=== PATIENT | male | born 1955 | race Two or more races ===

== ENCOUNTER 2025-04-03 12:05 | Inpatient (IN) | payer BC ==
[~2025-04-03] VITALS: Ht 188 cm; Wt 120.7 kg
[2025-04-03] VITALS (8 sets, daily range): BP systolic 109–133; BP diastolic 71–88; TEMP 97.3–98.6; O2SAT 92–96
[2025-04-03] MEDS ORDERED: APIX2.5T PO (12:41)
[2025-04-03] MEDS ORDERED: ATOR20TA PO (12:41)
[2025-04-03] MEDS ORDERED: METF-442 PO (12:41)
[2025-04-03] MEDS ORDERED: FENO145T21 PO (12:41)
[2025-04-03] MEDS ORDERED: LEVO50TA8 PO (12:41)
[2025-04-03 13:04] LABS: PLATELET COUNT (AUTO) 293 K/uL (152-348); RED BLOOD CELL COUNT(AUTO) 5.14 MIL/uL (4.06-5.63); RED CELL DISTRIBUTION WIDTH 15.2 % (12.1-16.2); WHITE BLOOD COUNT (AUTO) 9.4 K/uL (3.6-10.2)
[2025-04-03 13:16] LABS: ASPARTATE AMINOTRANSFERASE 20 U/L (15-37); CREATININE 1.2 mg/dL (0.6-1.3); SODIUM SERUM 139 mmol/L (136-145); TOTAL PROTEIN, SERUM 7.1 g/dL (6.4-8.2); UREA NITROGEN, BLOOD 17 mg/dL (7-18)
[2025-04-03] MEDS ORDERED: IOHEXOL 350 100 ML INFUS..BTL ONE (16:46)
[2025-04-03] MEDS ORDERED: SWABABLE VALVE TRANSFER SET EA MC ONE (16:52)
[2025-04-03] MEDS ORDERED: ONDANSETRON 4 MG/2 ML VIAL IV PRN (19:15)
[2025-04-03] MEDS ORDERED: MORPHINE SULFATE 2 MG/1 ML DISP.SYRIN IVP PRN (19:15)
[2025-04-03] MEDS ORDERED: ACETAMINOPHEN 325 MG TABLET PO PRN (19:15)
[2025-04-03] MEDS: IV NS 1000 ML 1,000 ML IV SCH (21:02)
[2025-04-03] MEDS: ATORVASTATIN 20 MG TABLET PO SCH (21:03)
[2025-04-04 05:42] VITALS: BP 137/85; TEMP 97.6; O2SAT 96
[2025-04-04 07:12] LABS: PLATELET COUNT (AUTO) 310 K/uL (152-348); RED BLOOD CELL COUNT(AUTO) 4.97 MIL/uL (4.06-5.63); RED CELL DISTRIBUTION WIDTH 15.5 % (12.1-16.2); WHITE BLOOD COUNT (AUTO) 6.7 K/uL (3.6-10.2)
[2025-04-04 07:26] LABS: ASPARTATE AMINOTRANSFERASE 16.0 U/L (15-37); CREATININE 1.2 mg/dL (0.6-1.3); SODIUM SERUM 140.0 mmol/L (136-145); TOTAL PROTEIN, SERUM 6.9 g/dL (6.4-8.2); UREA NITROGEN, BLOOD 13.0 mg/dL (7-18)
[2025-04-04 07:35] VITALS: BP 136/88; TEMP 97.6; O2SAT 96
[2025-04-04] MEDS ORDERED: HEPARIN SODIUM,PORCINE 5,000 UNITS/ML VIAL SQ SCH (09:00)
[2025-04-04] MEDS: LEVOTHYROXINE SODIUM 50 MCG TABLET PO SCH (09:06)
[2025-04-04] MEDS: FENOFIBRATE NANOCRYSTALLIZED 145 MG TABLET PO SCH (09:06)
[2025-04-04] MEDS: APIXABAN 2.5 MG TABLET PO SCH (09:07)
[2025-04-04 11:37] VITALS: BP 120/83; TEMP 97.7; O2SAT 95
== END 2025-04-04 14:20 | disposition home or self-care (01) | DRG 641 ==
LOC: ER 12:08 → TELE3 18:12
PROVIDERS: ADMIT Internal Medicine; ATTEND Internal Medicine
PROC: 05HA33Z Insertion of Infusion Device into Left Brachial Vein, Percutaneous Approach (ICD-10-PCS; principal; 2025-04-03)
DX: E86.0 Dehydration (principal); I82.5Z2 Chronic embolism and thrombosis of unspecified deep veins of left distal lower extremity; R55 Syncope and collapse; K57.30 Diverticulosis of large intestine without perforation or abscess without bleeding; E03.9 Hypothyroidism, unspecified; E78.5 Hyperlipidemia, unspecified; R09.02 Hypoxemia; Z79.01 Long term (current) use of anticoagulants; Z96.652 Presence of left artificial knee joint; Z96.642 Presence of left artificial hip joint; Z98.1 Arthrodesis status; Z79.84 Long term (current) use of oral hypoglycemic drugs; Z79.890 Hormone replacement therapy; E11.9 Type 2 diabetes mellitus without complications
CPT/HCPCS: 36415; 70450; 71045; 71275; 76775; 83690; 84100; 84484; 85025; 85730; 86850; 86900; 86901; 93307; A4663; G0378; J7040; Q9967